=== PATIENT | female | born 1995 ===

== ENCOUNTER → 2016-06-23 | Outpatient (REF) | LOC: WSOH 10:42 | DX: Z00.00 Encounter for general adult medical examination without abnormal findings (principal) | CPT/HCPCS: G0463 ==

== ENCOUNTER → 2016-11-13 | Outpatient (REF) | LOC: WSOH 12:00 | DX: Z02.89 Encounter for other administrative examinations (principal) ==

== ENCOUNTER 2017-10-13 23:51 | Emergency (ER) | payer OTHER ==
[~2017-10-13] VITALS: Ht 160 cm; Wt 59.1 kg
[2017-10-14 00:26] VITALS: BP 118/62; TEMP 97.6
[2017-10-14 00:40] VITALS: PULSE 52
[2017-10-14 00:54] LABS: HIV 1/2 Antibodies Non-Reactive; HIV-1p24 Antigen Non-Reactive
[2017-10-14 15:18] LABS: HEPATITIS B SURFACE ANTIGEN Negative (()); HEPATITIS C VIRUS ANTIBODY Negative (())
== END 2017-10-14 00:45 | disposition home or self-care (01) ==
LOC: COL.ER 23:51
PROVIDERS: Nurse Practitioner
DX: S69.92XA Unspecified injury of left wrist, hand and finger(s), initial encounter (principal); W46.1XXA Contact with contaminated hypodermic needle, initial encounter; Y92.89 Other specified places as the place of occurrence of the external cause

== ENCOUNTER 2018-01-11 11:03 | Outpatient (RCR) | payer OTHER ==
[~2018-01-11 11:03] MED LIST: BIRTH CONTROL PILLS PO; CEFTIN 250250 MG/TAB PO; IMPLANON; LORTAB 2.5/5001 TAB PO; NO HOME MEDICATIONS; PYRIDIUM200 M1 PO; VOLTAREN 75 DR75 MG PO; ZOFRAN ODT4 MG PO
== END 2018-04-11 | disposition home or self-care (01) ==
LOC: WSOH
DX: Z77.21 Contact with and (suspected) exposure to potentially hazardous body fluids (principal); W46.0XXA Contact with hypodermic needle, initial encounter; Y93.F9 Activity, other caregiving; Y92.239 Unspecified place in hospital as the place of occurrence of the external cause; Y99.0 Civilian activity done for income or pay

== ENCOUNTER → 2020-03-26 | Outpatient (REF) | LOC: WSOH 15:41 | DX: Z02.89 Encounter for other administrative examinations (principal) ==